=== PATIENT | male | born 2005 | race Caucasian/White ===

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

== ENCOUNTER 2023-01-30 22:57 | Inpatient (IN) | payer MEDICAID, OTHER ==
[~2023-01-30] VITALS: Ht 167.6 cm; Wt 68.4 kg
[~2023-01-30 22:57] MED LIST changes: +CETI10TA PO; -DIPH-319; +DIPH-429; +OLAN10TA12 PO; +OLAN20TA14 PO; +OXCA150T21 PO
[2023-01-30 23:39] LABS: HEMATOCRIT 41.4 % (42.0-52.0); HEMOGLOBIN 14.1 g/dl (13.5-17.5); MEAN CORPUSCULAR HEMOGLOBIN 31.8 pg (27.0-33.0); MEAN CORPUSCULAR HGB CONC 34.1 g/dl (32.0-36.5); MEAN CORPUSCULAR VOLUME 93.5 fl (80.0-96.0); PLATELET COUNT, AUTOMATED 260 10^3/uL (150-450); RED BLOOD COUNT 4.43 10^6/uL (4.30-6.10)
[2023-01-31 00:04] LABS: AMPHETAMINES LEVEL URINE NEGATIVE (NEGATIVE); BARBITURATES URINE NEGATIVE (NEGATIVE); BENZODIAZEPINES URINE NEGATIVE (NEGATIVE); CANNABINOIDS URINE NEGATIVE (NEGATIVE); COCAINE METABOLITE URINE NEGATIVE (NEGATIVE); METHADONE URINE NEGATIVE (NEGATIVE); OPIATES URINE NEGATIVE (NEGATIVE); PHENCYCLIDINE URINE NEGATIVE (NEGATIVE)
[2023-01-31 00:06] LABS: ETHYL ALCOHOL (ETHANOL) < 0.003 % (0.000-0.010)
[2023-01-31 00:08] LABS: ALBUMIN 4.7 G/DL (3.2-5.2); ALKALINE PHOSPHATASE 73 U/L (46-116); ALT/SGPT 21 U/L (7.0-40); AST/SGOT 17 U/L (<34); BILIRUBIN,DIRECT < 0.1 MG/DL (<0.4); BILIRUBIN,TOTAL 0.2 MG/DL (0.3-1.2); BLOOD UREA NITROGEN 15 MG/DL (9-23); CALCIUM LEVEL 9.7 MG/DL (8.5-10.1); CARBON DIOXIDE LEVEL 30 MMOL/L (20-31); CHLORIDE LEVEL 103 MMOL/L (98-107); CREATININE FOR GFR 0.88 MG/DL (0.70-1.30); GLUCOSE, FASTING 79 MG/DL (60-100); POTASSIUM SERUM 3.9 MMOL/L (3.5-5.1); SALICYLATE LEVEL < 3.0 MG/DL (<30); SODIUM LEVEL 139 MMOL/L (136-145); TOTAL PROTEIN 7.5 G/DL (5.7-8.2)
[2023-01-31 00:10] LABS: THYROID STIMULATING HORMONE 3.397 uIU/ML (0.48-4.17)
[2023-01-31] MEDS ORDERED: MAALOX 30 ML SUSP *UDC PO PRN (02:15)
[2023-01-31] MEDS ORDERED: MOM 30ML SUSPENSION UDC PO PRN (02:15)
[2023-01-31] MEDS ORDERED: diphenhydrAMINE 25MG CAP PO PRN (02:15)
[2023-01-31] MEDS ORDERED: IBUPROFEN 400MG TAB PO PRN (02:15)
[2023-01-31 03:33] VITALS: BP 139/87; TEMP 97.6; O2SAT 95
[2023-01-31] MEDS ORDERED: OLAN10TA12 PO (03:33)
[2023-01-31] MEDS ORDERED: CETI-24 PO (03:33)
[2023-01-31] MEDS ORDERED: CLON0.3T PO (03:33)
[2023-01-31] MEDS ORDERED: OXCA150T21 PO (03:33)
[2023-01-31] MEDS ORDERED: TRAZ-252 PO (03:33)
[2023-01-31] MEDS ORDERED: LEXA1TAB2 PO (03:33)
[2023-01-31] MEDS ORDERED: LURA40TA2 PO (03:34)
[2023-01-31] MEDS ORDERED: HOME MED LIST COMPLETE! XX SCH (03:35)
[2023-01-31 06:00] VITALS: BP 113/76; TEMP 98.1; O2SAT 98
[2023-01-31] MEDS: ACETAMINOPHEN TAB 650MG DOSE (2X325MG) PO PRN (13:37)
[2023-01-31 16:20] VITALS: BP 158/96; TEMP 99; O2SAT 97
[2023-01-31 16:40] VITALS: BP 140/85
[2023-01-31] MEDS: OXcarbazepine 150 MG TAB PO SCH (20:34)
[2023-01-31] MEDS: ESCITALOPRAM OXALATE 10 MG TAB (LEXAPRO) PO SCH (20:34)
[2023-02-01 06:52] VITALS: BP 144/85; TEMP 97.4; O2SAT 100
[2023-02-01 16:18] VITALS: BP 135/79; TEMP 97.9; O2SAT 98
[2023-02-01] MEDS: traZODone 50 MG TAB PO PRN (20:45)
[2023-02-01] MEDS: OXcarbazepine 150 MG TAB PO SCH (20:45)
[2023-02-01] MEDS: cloNIDine 0.1MG TABLET PO SCH (20:45)
[2023-02-01] MEDS: ESCITALOPRAM OXALATE 10 MG TAB (LEXAPRO) PO SCH (20:45)
[2023-02-01] MEDS: ACETAMINOPHEN TAB 650MG DOSE (2X325MG) PO PRN (20:46)
[2023-02-02 06:41] VITALS: BP 121/58; TEMP 97.7; O2SAT 98
[2023-02-02] MEDS ORDERED: OLANZapine 5 MG TAB PO SCH (09:00)
[2023-02-02] MEDS: OLANZapine 2.5MG TABLET PO SCH (10:14)
[2023-02-02 19:25] VITALS: BP 123/59; TEMP 97.6; O2SAT 98
[2023-02-02] MEDS: cloNIDine 0.1MG TABLET PO SCH (20:01)
[2023-02-02] MEDS: OXcarbazepine 150 MG TAB PO SCH (20:01)
[2023-02-02] MEDS: ESCITALOPRAM OXALATE 10 MG TAB (LEXAPRO) PO SCH (20:01)
[2023-02-02] MEDS: traZODone 50 MG TAB PO PRN (20:01)
[2023-02-02] MEDS: ACETAMINOPHEN TAB 650MG DOSE (2X325MG) PO PRN (20:03)
[2023-02-03 06:23] VITALS: BP 112/63; TEMP 97.4; O2SAT 97
[2023-02-03] MEDS: OLANZapine 2.5MG TABLET PO SCH (09:00)
[2023-02-03] MEDS: ACETAMINOPHEN TAB 650MG DOSE (2X325MG) PO PRN (15:39)
[2023-02-03 17:48] VITALS: BP 132/80; TEMP 98.6; O2SAT 98
[2023-02-03] MEDS: ESCITALOPRAM OXALATE 10 MG TAB (LEXAPRO) PO SCH (20:29)
[2023-02-03] MEDS: traZODone 50 MG TAB PO PRN (20:29)
[2023-02-03 20:30] VITALS: BP 144/92
[2023-02-03] MEDS: OXcarbazepine 150 MG TAB PO SCH (20:30)
[2023-02-03] MEDS: cloNIDine 0.1MG TABLET PO SCH (20:30)
[2023-02-04 06:18] VITALS: BP 127/75; TEMP 97.4; O2SAT 100
[2023-02-04] MEDS: OLANZapine 2.5MG TABLET PO SCH (09:24)
[2023-02-04] MEDS ORDERED: CLONI1TA PO (11:56)
[2023-02-04] MEDS ORDERED: LEXA1TAB PO (11:56)
[2023-02-04] MEDS ORDERED: OXCA150T21 PO (11:56)
[2023-02-04] MEDS ORDERED: TRAZ-252 PO (11:56)
== END 2023-02-04 13:34 | disposition home or self-care (01) | DRG 750 ==
LOC: M ED 22:57 → M ED INP 01-31 02:12 → M PSY 01-31 03:06
PROVIDERS: ADMIT Psychiatry & Neurology Psychiatry; ATTEND Student in an Organized Health Care Education/Training Program
DX: F25.0 Schizoaffective disorder, bipolar type (principal); F90.9 Attention-deficit hyperactivity disorder, unspecified type; F41.1 Generalized anxiety disorder; F60.89 Other specific personality disorders; F42.8 Other obsessive-compulsive disorder; F79 Unspecified intellectual disabilities; Z79.899 Other long term (current) drug therapy; Z20.822 Contact with and (suspected) exposure to COVID-19